=== PATIENT | male | born 1975 ===

== ENCOUNTER 2020-12-06 07:01 | Emergency (ER) | payer OTHER ==
[~2020-12-06] VITALS: Ht 170.2 cm; Wt 76.7 kg
[2020-12-06 07:06] VITALS: BP 127/89
[2020-12-06] MEDS ORDERED: TETANUS-DIPTH-ACEL PERTUSSIS 0.5ML SYR Tdap IM ONE (08:45)
[2020-12-06] MEDS ORDERED: cefTRIAXone SOD 1,000 MG VL IM ONE (08:45)
[2020-12-06] MEDS ORDERED: LIDOCAINE 2% (LOCAL ANESTH.) PF 5ml SDV ONE (09:12)
== END 2020-12-06 11:12 | disposition home or self-care (01) ==
LOC: ER 07:01
DX: S62.521A Displaced fracture of distal phalanx of right thumb, initial encounter for closed fracture (principal); S61.011A Laceration without foreign body of right thumb without damage to nail, initial encounter; W20.8XXA Other cause of strike by thrown, projected or falling object, initial encounter; Y93.89 Activity, other specified; Y92.89 Other specified places as the place of occurrence of the external cause; Y99.8 Other external cause status
CPT/HCPCS: 11730; 12002; 73140; 90471; 90715; 96372; 99284; J0696; J2001